=== PATIENT | female | born 1930 | race Caucasian/White ===

== ENCOUNTER 2017-04-15 09:55 | Emergency (ER) | payer MEDICARE ==
[2017-04-15] MEDS ORDERED: HYDROcodone/Acetaminophen 10/325 mg Tablet ONE (10:41)
--- NOTE | 2017-04-15 11:29 | RAD ---
2 VIEWS SACRUM AND COCCYX: Date: 04/15/17 INDICATION: Sacral and coccygeal pain. FINDINGS: There is suggested healing fracture involving the proximal coccyx, best seen on the lateral projecti on. No additional fracture is evident. There is diffuse osteopenia. There is posterolateral spine in strumentation seen from L4 through S1 with intervertebral cages at L4-5 and L5-S1. Laminectomy dewitt es are seen at L4-5 and L5-S1. IMPRESSION: Healing proximal coccygeal fracture. POS: SHAUNA
--- NOTE | 2017-04-15 11:34 | RAD ---
TWO VIEWS OF THE LUMBAR SPINE: INDICATION: Back pain in an 78-year-old female. FINDINGS: There is a superior central end plate compression deformity involving 25% of the height of the L2 ve rtebra. There is advanced degenerative disk disease at L2-3 and L3-4. There is posterolateral inne r body fusion at L4 through S1 with intervertebral cages seen at L4-5 and L5-S1. There is diffuse o steopenia. IMPRESSION: 1. Superior central end plate compression deformity of L2 of indeterminate chronicity. Bone scan o r MRI may be helpful to evaluate for acuity. 2. 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 3. Laminectomies at L4, L5 with posterolateral spinal interbody fusion of L4 through S1. POS: SHAUNA
== END 2017-04-15 12:15 | disposition home or self-care (01) ==
LOC: NAV ERS 09:55
DX: S32.028A Other fracture of second lumbar vertebra, initial encounter for closed fracture (principal); S32.2XXD Fracture of coccyx, subsequent encounter for fracture with routine healing; E11.9 Type 2 diabetes mellitus without complications; I10 Essential (primary) hypertension; F41.9 Anxiety disorder, unspecified; Z79.01 Long term (current) use of anticoagulants; X58.XXXA Exposure to other specified factors, initial encounter
CPT/HCPCS: 72100; 72220